=== PATIENT | female | born 1930 | race Caucasian/White ===

== ENCOUNTER 2017-12-14 11:57 | Emergency (ER) | payer MEDICARE ==
[~2017-12-14] VITALS: Ht 170.2 cm; Wt 88.5 kg
== END 2017-12-14 13:00 | disposition home or self-care (01) ==
LOC: FSED 11:57
DX: T16.2XXA Foreign body in left ear, initial encounter (principal); X58.XXXA Exposure to other specified factors, initial encounter; Z85.820 Personal history of malignant melanoma of skin
CPT/HCPCS: 30999; 99284